=== PATIENT | female | born 1940 ===

== ENCOUNTER 2019-02-23 07:00 | Day surgery (SDC) | payer OTHER ==
[~2019-02-23] VITALS: Ht 152.4 cm; Wt 96.6 kg
[~2019-02-23 07:00] MED LIST: ALDACTAZIDE 251 EACH PO; ANASTROZOLE1 MG PO; ASPIR 8181 MG PO; ATORVASTATIN CA40 MG PO; COZAAR50 MG PO; FOLIC ACID1 MG PO; GABAPENTIN300 MG PO; METHOTREXATE2.5 MG PO; ORENCIA125 MG/1 M; PRILOSEC OTC20 MG PO; [UNRECOGNIZED DRUG - OTHER] PO
[2019-02-23] MEDS ORDERED: DILTIAZEM ER180 M3 PO (10:42)
== END 2019-02-24 08:00 | disposition home or self-care (01) ==
LOC: CIR.AMB 07:00 → EDSTATUS 09:09 → SURH 09:11 → O/R 17:21 → SURH 17:21 → CIR.AMB 18:26 → EDSTATUS 19:45 → CIR.AMB 02-24 08:00 → SURH 02-24 13:57 → O/R 02-24 13:57
DX: D05.11 Intraductal carcinoma in situ of right breast (principal); C77.3 Secondary and unspecified malignant neoplasm of axilla and upper limb lymph nodes